=== PATIENT | female | born 1990 | race American Indian/Alaskan Native ===

== ENCOUNTER 2016-07-15 16:37 | Emergency (ER) | payer OTHER ==
[2016-07-15 18:51] LABS: Alanine Aminotransferase 9 units/L (7-56); Albumin/Globulin Ratio 1.5 %; Alkaline Phosphatase 52 units/L (35-129); Anion Gap 16 mmol/L; BUN/Creatinine Ratio 22.85; Blood Urea Nitrogen 16 mg/dL (7-17); Calcium 9.1 mg/dL (8.4-10.2); Carbon Dioxide 26 mmol/L (22-30); Chloride 100.5 mmol/L (98-107); Glucose 100 mg/dL (65-100); Lipase 50 units/L (13-60); Sodium 138 mmol/L (137-145); Total Protein 6.6 g/dL (6.3-8.2)
[2016-07-15 18:56] LABS: Basophils % (Auto) 0.8 % (0.0-1.8); Eosinophils % (Auto) 0.8 % (0.0-4.3); Hematocrit 39.3 % (30.3-42.9); Hemoglobin 12.8 gm/dl (10.1-14.3); Mean Corpuscular HGB Conc 33 % (30-34); Mean Corpuscular Hemoglobin 31 pg (28-32); Mean Corpuscular Volume 96 fl (79-97); Platelet Count 143 K/mm3 (140-440); Red Cell Distribution Width 12.6 % (13.2-15.2); White Blood Count 4.8 K/mm3 (4.5-11.0)
[2016-07-16 00:09] LABS: Bilirubin,Urine NEG (Negative); Blood,Urine MOD (Negative); Ketones,Urine NEG (Negative); Leukocyte Esterase,Urine NEG (Negative); Mucus,Urine FEW /HPF; Nitrite,Urine NEG (Negative); Protein,Urine <15 mg/dL mg/dL (Negative); RBC,Urine < 1.0 /HPF (0.0-6.0); Urobilinogen,Urine < 2.0 mg/dL (<2.0)
[2016-07-16] MEDS ORDERED: TENIVAC IM ONE (00:42)
[2016-07-16] MEDS ORDERED: MOTRIN PO ONE (00:42)
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
[2016-07-16 01:14] VITALS: BP 121/79
== END 2016-07-16 01:19 | disposition home or self-care (01) ==
LOC: EDSEX → ED 16:37
DX: S80.212A Abrasion, left knee, initial encounter (principal); S60.511A Abrasion of right hand, initial encounter; S80.812A Abrasion, left lower leg, initial encounter; V19.9XXA Pedal cyclist (driver) (passenger) injured in unspecified traffic accident, initial encounter; Y93.89 Activity, other specified; Y92.89 Other specified places as the place of occurrence of the external cause; Y99.8 Other external cause status
CPT/HCPCS: 36415; 80053; 81001; 81025; 83690; 85025; 90471; 90714

== ENCOUNTER 2017-08-30 12:53 | Emergency (ER) | payer MEDICAID ==
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
[2017-08-30 14:06] LABS: HCG Qualitative,Urine Negative (Negative)
--- NOTE | 2017-08-30 16:11 | XRay Report ---
FINAL REPORT EXAM: XR SPINE CERVICAL 2-3V HISTORY: bilateral trapezius tenderness TECHNIQUE: Three views cervical spine. PRIORS: None currently available. FINDINGS: Nonspecific straightening and reversal of the cervical alignment. Reversal centered at C4-C5. Mild disc space narrowing at C4-C6. Otherwise disc spaces are uniform. No fracture. No significant subluxation. Prevertebral soft tissues are unremarkable. Posterior elements are intact. Dextroscoliosis of the cervicothoracic spine. Levoscoliosis of the upper/mid thoracic spine. Mild rotatory component. No suspicious osseous lesions. No vertebral anomalies. Lateral masses of C1 are aligned with C2. IMPRESSION: Mild discogenic disease at C4-C6. Straightening and slight reversal of the cervical alignment. Scoliosis.
--- NOTE | 2017-08-30 16:14 | XRay Report ---
FINAL REPORT EXAM: XR SPINE LUMBOSACRAL 2-3V HISTORY: bilateral tenderness of the sacroiliac crepitus TECHNIQUE: Two views lumbar spine. No anterior and posterior view. PRIORS: None currently available. FINDINGS: The lack of and anterior and posterior view limits evaluation. Transitional vertebra is labeled as L5. Moderate disc space narrowing at L5-S1. [id number] disc space narrowing with grade 1 posterior subluxation L4-. Mild disc space narrowing with grade 1 posterior subluxation at L3-L4. Otherwise disc spaces are uniform. No fracture. Posterior elements are intact. Facet arthropathy noted at L3-S1. IMPRESSION: No AP view of the lumbar spine. Transitional vertebra. Degenerative discs in the lower lumbar spine.
[2017-08-30 16:53] VITALS: BP 114/67
== END 2017-08-30 16:53 | disposition home or self-care (01) ==
LOC: ED 12:53
DX: S16.1XXA Strain of muscle, fascia and tendon at neck level, initial encounter (principal); S39.012A Strain of muscle, fascia and tendon of lower back, initial encounter; F17.200 Nicotine dependence, unspecified, uncomplicated; V89.2XXA Person injured in unspecified motor-vehicle accident, traffic, initial encounter; Y93.89 Activity, other specified; Y99.8 Other external cause status; Y92.410 Unspecified street and highway as the place of occurrence of the external cause
CPT/HCPCS: 72040; 72100; 81025